=== PATIENT | male | born 1985 | race Caucasian/White ===

== ENCOUNTER 2017-07-03 14:47 | Emergency (ER) | payer SELFPAY ==
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
[2017-07-03] MEDS: IBUPROFEN 600 MG TABLET PO ONE (15:17)
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
== END 2017-07-03 16:18 | disposition home or self-care (01) ==
LOC: ER 14:47
DX: G89.11 Acute pain due to trauma (principal); M25.562 Pain in left knee; V86.59XA Driver of other special all-terrain or other off-road motor vehicle injured in nontraffic accident, initial encounter
CPT/HCPCS: 99283